=== PATIENT | male | born 1995 | race African-American/Black ===

== ENCOUNTER 2017-11-28 19:00 | Inpatient (IN) | payer OTHER ==
[2017-11-28 20:30] LABS: HEMATOCRIT 42.4 % (42.0-52.0); HEMOGLOBIN 13.5 g/dl (13.5-17.5); MEAN CORPUSCULAR HEMOGLOBIN 26.5 pg (27.0-33.0); MEAN CORPUSCULAR HGB CONC 31.8 g/dl (32.0-36.5); MEAN CORPUSCULAR VOLUME 83.3 fl (80.0-96.0); PLATELET COUNT, AUTOMATED 235 10^3/uL (150-450); RED BLOOD COUNT 5.09 10^6/uL (4.30-6.10); RED CELL DISTRIBUTION WIDTH 12.7 % (11.5-14.5); WHITE BLOOD COUNT 6.2 10^3/uL (4.0-10.0)
[2017-11-28 20:50] LABS: AMPHETAMINES LEVEL URINE NEGATIVE (NEGATIVE); BARBITURATES URINE NEGATIVE (NEGATIVE); BENZODIAZEPINES URINE NEGATIVE (NEGATIVE); CANNABINOIDS URINE NEGATIVE (NEGATIVE); COCAINE METABOLITE URINE NEGATIVE (NEGATIVE); METHADONE URINE NEGATIVE (NEGATIVE); OPIATES URINE NEGATIVE (NEGATIVE); PHENCYCLIDINE URINE NEGATIVE (NEGATIVE)
[2017-11-28 20:52] LABS: ALBUMIN 4.5 GM/DL (3.2-5.2); ALBUMIN/GLOBULIN RATIO 1.18 (1.00-1.93); ALKALINE PHOSPHATASE 64 U/L (45-117); ALT/SGPT 26 U/L (12-78); ANION GAP 9 MEQ/L (8-16); AST/SGOT 23 U/L (7-37); BILIRUBIN,DIRECT 0.1 MG/DL (0.0-0.2); BILIRUBIN,TOTAL 0.5 MG/DL (0.2-1.0); BLOOD UREA NITROGEN 14 MG/DL (7-18); CALCIUM LEVEL 9.4 MG/DL (8.5-10.1); CARBON DIOXIDE LEVEL 28 MEQ/L (21-32); CHLORIDE LEVEL 104 MEQ/L (98-107); CREATININE FOR GFR 1.26 MG/DL (0.70-1.30); ETHYL ALCOHOL (ETHANOL) < 0.003 % (0.000-0.010); GLOMERULAR FILTRATION RATE > 60.0 (>60); GLUCOSE, FASTING 95 MG/DL (70-100); POTASSIUM SERUM 4.1 MEQ/L (3.5-5.1); SALICYLATE LEVEL 1.8 MG/DL (5.0-30.0); SODIUM LEVEL 141 MEQ/L (136-145); THYROID STIMULATING HORMONE 0.457 uIU/ML (0.358-3.740); TOTAL PROTEIN 8.3 GM/DL (6.4-8.2)
[2017-11-28 20:55] LABS: ACETAMINOPHEN LEVEL < 2.0 UG/ML (10.0-30.0)
[2017-11-28] MEDS ORDERED: MOM 30ML SUSPENSION UDC PO (21:00)
[2017-11-28] MEDS ORDERED: MAALOX 30 ML SUSP *UDC PO (21:00)
[2017-11-28] MEDS ORDERED: ACETAMINOPHEN TAB 650MG DOSE (2X325MG) PO (21:00)
[2017-11-29] MEDS: CLOTRIMAZOLE 1% TOPICAL CREAM 30GM TOP ×2 (09:00→21:46)
[2017-11-29] MEDS: NICOTINE 14 MG/24 HR TRANSDERMAL TD (09:23)
[2017-11-30] MEDS: CLOTRIMAZOLE 1% TOPICAL CREAM 30GM TOP ×2 (09:47→21:00)
[2017-11-30] MEDS: NICOTINE 14 MG/24 HR TRANSDERMAL TD (09:49)
[2017-12-01] MEDS: CLOTRIMAZOLE 1% TOPICAL CREAM 30GM TOP ×2 (08:50→20:12)
[2017-12-01] MEDS: NICOTINE 14 MG/24 HR TRANSDERMAL TD (08:50)
[2017-12-02] MEDS: CLOTRIMAZOLE 1% TOPICAL CREAM 30GM TOP ×2 (08:25→21:00)
[2017-12-02] MEDS: NICOTINE 14 MG/24 HR TRANSDERMAL TD (08:25)
[2017-12-03] MEDS: CLOTRIMAZOLE 1% TOPICAL CREAM 30GM TOP ×2 (07:58→21:00)
[2017-12-03] MEDS: NICOTINE 14 MG/24 HR TRANSDERMAL TD (07:58)
[2017-12-04] MEDS: CLOTRIMAZOLE 1% TOPICAL CREAM 30GM TOP ×2 (08:09→20:39)
[2017-12-04] MEDS: NICOTINE 14 MG/24 HR TRANSDERMAL TD (08:09)
[2017-12-04] MEDS: traZODone 50 MG TAB PO (22:58)
[2017-12-05] MEDS: NICOTINE 14 MG/24 HR TRANSDERMAL TD (09:00)
[2017-12-05] MEDS: CLOTRIMAZOLE 1% TOPICAL CREAM 30GM TOP (09:42)
== END 2017-12-05 11:40 | disposition home or self-care (01) | DRG 881 ==
LOC: M ED 19:00 → M ED INP 21:00 → M PSY 22:05
DX: F34.1 Dysthymic disorder (principal); F32.3 Major depressive disorder, single episode, severe with psychotic features; F17.210 Nicotine dependence, cigarettes, uncomplicated; F64.9 Gender identity disorder, unspecified; Z79.899 Other long term (current) drug therapy; B35.9 Dermatophytosis, unspecified

== ENCOUNTER 2018-12-01 15:28 | Emergency (ER) | payer OTHER ==
[~2018-12-01] VITALS: Ht 193 cm; Wt 103.3 kg
[~2018-12-01 15:28] MED LIST: CLOT1CRE27 TOP; NICO14PA TD; PATIENT COMMENT; TRAZ1TAB10 PO
[2018-12-01] MEDS ORDERED: LIDOCAINE 2% MDV 20 ML VIAL SC ONE (18:30)
[2018-12-01] MEDS ORDERED: KEFL500C17 PO ×2 (18:54→18:56)
[2018-12-01 19:11] VITALS: BP 133/76
== END 2018-12-01 19:17 | disposition home or self-care (01) ==
LOC: M ED 15:28
DX: S00.451A Superficial foreign body of right ear, initial encounter (principal); X58.XXXA Exposure to other specified factors, initial encounter; Y92.89 Other specified places as the place of occurrence of the external cause; Z91.040 Latex allergy status